=== PATIENT | female | born 1990 | race Caucasian/White ===

== ENCOUNTER → 2018-07-08 | Outpatient (CLI) | payer OTHER ==
--- NOTE | 2018-07-08 15:40 | RADIOLOGY IMAGING REPORT ---
FACILITY: [facility] - [place] PATIENT NAME: Maximino Luna : 1990 MR: [id number] V: [id number] EXAM DATE: ORDERING PHYSICIAN: DAILY SALINAS TECHNOLOGIST: Location: [facility] Patient: Maximino Luna : 1990 Visit/Account:[id number] Date of Sevice: 07/08/2018 Exam type: L-SPINE COMPLETE W/BENDING History: Low back pain, injury July 2017 Comparison: None. Findings: Five nonrib-bearing lumbar-type vertebral bodies present. There is a minimal levoconvex curvature to the lumbar spine. There is no evidence of acute fractures or subluxations. The disc spaces appear well-preserved. IMPRESSION: 1. Unremarkable lumbar spine series other than a minimal levoconvex curvature. If patient's symptom s persist MR may be helpful Report Dictated By: Latanya Christopher MD at 07/08/2018 3:36 PM Report E-Signed By: Latanya Christopher MD at 07/08/2018 3:37 PM WSN:[email or web address]
== END ==
LOC: RAD 12:19
PROVIDERS: ATTEND Chiropractor
DX: M54.5 Low back pain (principal)
CPT/HCPCS: 72114